=== PATIENT | male | born 1995 | race Two or more races ===

== ENCOUNTER 2017-11-11 23:55 | Emergency (ER) | payer BC, OTHER ==
[2017-11-12] MEDS ORDERED: Lidocaine 1% with EPINEPHrine 1:100,000 10 ML MDV INJECT ONE (00:11)
[2017-11-12] MEDS ORDERED: Bacitracin Oint 1 GM U/D Packet TOP ONE (00:11)
[2017-11-12] MEDS ORDERED: Lidocaine 1% 10 ML MDV ONE (00:15)
[2017-11-12] MEDS ORDERED: Cephalexin 500 MG Cap PO ONE (00:17)
--- NOTE | 2017-11-12 00:17 | EDM.PDOC ---
ED HPI GENERAL MEDICAL PROBLEM - General Chief Complaint: Laceration Stated Complaint: PUNCTURE ON LEFT ARM Time Seen by Provider: 11/12/17 00:04 - History of Present Illness INITIAL COMMENTS - FREE TEXT/NARRATIVE: HISTORY AND PHYSICAL: History of present illness: The patient is a 22 year male who presents with complaints of a puncture laceration to his left forearm that occurred just prior to coming to the ER at home when he was using a small knife to open a baby gate. Patient is right-hand dominant and his last tetanus was 2012, 4 years ago. He complains of pain at the area and if he moves his hand and wrist but there is no other injuries or discomfort. He has had no systemic complaints prior to these events. Review of systems: As per history of present illness and below otherwise all systems reviewed and negative. Past medical history: As per history of present illness and as reviewed below otherwise noncontributory. Surgical history: As per history of present illness and as reviewed below otherwise noncontributory. Social history: No reported history of drug or alcohol abuse. Family history: As per history of present illness and as reviewed below otherwise noncontributory. Physical exam: Gen.: Well-developed overweight man who is nontoxic and vital signs reviewed by me HEENT: Atraumatic, normocephalic negative for conjunctival pallor or scleral icterus, mucous membranes moist, throat clear, neck supple, nontender, trachea midline. Lungs: Clear to auscultation, breath sounds equal bilaterally, chest nontender. Heart: S1S2, regular rate and rhythm no overt murmurs Abdomen: Soft, nondistended, nontender. NABS. Pelvis: Deferred Genitourinary: Deferred. Rectal: Deferred. Extremities: Atraumatic with full range of motion of all extremities with the exception of the left forearm where at approximately mid point there is a 1 cm gaping puncture laceration seen with subcutaneous fat. There is some minimal bleeding but no surrounding soft tissue swelling crepitus or deformities. Distally the patient has full range of motion of the hand and wrist. The legs are, negative for cords or calf pain. Neurovascular unremarkable. Neuro: Awake, alert, oriented. Cranial nerves II through XII unremarkable. Cerebellum unremarkable. Motor and sensory unremarkable throughout. Exam nonfocal. Diagnostics: [] Therapeutics: Lidocaine with epinephrine wound care with bacitracin Keflex Procedure note: After I explained the procedure to the patient the area is cleansed by nursing and 1% lidocaine with epinephrine was infused in a local fashion. The area was prepped and draped in sterile fashion. The wound was explored and no foreign bodies were appreciated. The skin edges were reapproximated tacking them together using a total number of #2 sutures of 4- 0 nylon. There were no complications the patient tolerated the procedure well. I had previously explained to the patient that we would just be tacking the wound closed as there is always the potential of infection with puncture wounds. Impression: Puncture laceration to left forearm Definitive disposition and diagnosis as appropriate pending reevaluation and review of above. left forearm Pain Score (Numeric/FACES): 1 - Related Data Allergies Allergy/AdvReac Type Severity Reaction Status Date / Time No Known Allergies Allergy Verified 11/11/17 23:59 Home Meds: Home Meds . [No Known Home Meds] 11/03/14 [History] Past Medical History - Past Health History Medical/Surgical History: Denies Medical/Surgical History Endocrine/Metabolic History: Reports: Obesity/BMI 30+ - Past Surgical History GI Surgical History: Reports: Appendectomy Social & Family History - Family History Family Medical History: Noncontributory - Tobacco Use Smoking Status *Q: Never Smoker Years of Tobacco use: 0 Second Hand Smoke Exposure: No - Alcohol Use Days Per Week of Alcohol Use: 0 - Recreational Drug Use Recreational Drug Use: No ED ROS GENERAL - Review of Systems Review Of Systems: ROS reveals no pertinent complaints other than HPI. ED EXAM, SKIN/RASH Exam: See Below (See dictation) Course - Vital Signs Last Recorded V/S: Last Vital Signs Temp 36.1 C 11/11/17 23:55 Pulse 106 H 11/11/17 23:55 Resp 18 11/11/17 23:55 BP 138/86 11/11/17 23:55 Pulse Ox 96 11/11/17 23:55 - Orders/Labs/Meds Orders: Active Orders 24 hr Category Date Time Status Communication Order [RC] STAT Care 11/12/17 00:11 Active Meds: Medications Discontinued Medications Generic Name Dose Route Start Last Admin Trade Name Freq PRN Reason Stop Dose Admin Bacitracin 1 dose 11/12/17 00:11 11/12/17 00:24 Bacitracin Oint 1 Gm TOP 11/12/17 00:12 1 dose ONETIME ONE Administration Cephalexin 500 mg 11/12/17 00:17 11/12/17 00:28 Keflex PO 11/12/17 00:18 500 mg ONETIME ONE Administration Lidocaine/Epinephrine 10 ml 11/12/17 00:11 Xylocaine 1% With Epinephrine 1:100,000 INJECT 11/12/17 00:12 ONETIME ONE Departure - Departure Time of Disposition: 00:32 Disposition: Home, Self-Care 01 Condition: Good Clinical Impression: Puncture wound Laceration of forearm Qualifiers: Encounter type: initial encounter Laterality: left Qualified Code(s): S51.812A - Laceration without foreign body of left forearm, initial encounter - Discharge Information Referrals: PCP,None [Primary Care Provider] - Forms: ED Department Discharge Additional Instructions: The following information is given to patients seen in the emergency department who are being discharged to home. This information is to outline your options for follow-up care. We provide all patients seen in our emergency department with a follow-up referral. The need for follow-up, as well as the timing and circumstances, are variable depending upon the specifics of your emergency department visit. If you don't have a primary care physician on staff, we will provide you with a referral. We always advise you to contact your personal physician following an emergency department visit to inform them of the circumstance of the visit and for follow-up with them and/or the need for any referrals to a consulting specialist. The emergency department will also refer you to a specialist when appropriate. This referral assures that you have the opportunity for followup care with a specialist. All of these measure are taken in an effort to provide you with optimal care, which includes your followup. Under all circumstances we always encourage you to contact your private physician who remains a resource for coordinating your care. When calling for followup care, please make the office aware that this follow-up is from your recent emergency room visit. If for any reason you are refused follow-up, please contact the [facility] emergency department at and ask to speak to the emergency department charge nurse. [facility] Primary care- [place] [address] Please keep the dressing that was placed in the ER on for the next 24 hours then remove the dressing and cleanse with mild soap and water pat dry. Apply bacitracin or Neosporin for the next several days and then stop the ointment. Sutures should be removed in 7-10 days here in the emergency department or with your provider in the clinic. Please take antibiotics as prescribed until they' re finished. Return to ER as needed and as discussed - My Orders Last 24 Hours: My Active Orders 11/12/17 00:11 Communication Order [RC] STAT - Assessment/Plan Last 24 Hours: My Active Orders 11/12/17 00:11 Communication Order [RC] STAT
[2017-11-12 00:48] VITALS: BP 153/95
== END 2017-11-12 00:45 | disposition home or self-care (01) ==
LOC: MW.ED 23:55
DX: S51.812A Laceration without foreign body of left forearm, initial encounter (principal); W26.0XXA Contact with knife, initial encounter
CPT/HCPCS: 12001; 99282; A9270; 99283